=== PATIENT | female | born 1990 | race Hispanic/Latino ===

== ENCOUNTER 2018-09-26 12:12 | Emergency (ER) | payer OTHER, SELFPAY | END 2018-09-26 13:02 | disposition left against medical advice (07) | LOC: ER 12:12 | DX: Z53.21 Procedure and treatment not carried out due to patient leaving prior to being seen by health care provider (principal) ==

== ENCOUNTER 2022-10-27 22:07 | Emergency (ER) | payer SELFPAY ==
--- OUTSIDE RECORDS SUMMARY | 2022-10-27 22:09 | XMS REPORT | Continuity of Care Document ---
:1990 Author Organization [facility] t Address [address] [place] [address] Care Team Providers Name Role Phone Asked, No Pcp Primary Care Physician Unavailable Kelsey Love Attending Clinician Unavailable MIKE CONLEY Attending Clinician Unavailable Lita Hill NP Attending Clinician Doctor Unassigned, [place] Attending Clinician Unavailable [email or web address]_silva Attending Clinician Unavailable Kelsey Love Admitting Clinician Unavailable KNOW, DOES_NOT Admitting Clinician Unavailable [email or web address]_k Admitting Clinician Unavailable Payers Payer Name Policy Type Policy Number Effective Date Expiration Date Dahiana jovanny [facility] - [id number] 2017 00:00:00 OUT OF STATE Problems This patient has no known problems. Allergies, Adverse Reactions, Alerts Allergy Allergy Status Severity Reaction(s) Onset Inactive Treating Comm ents Source Name Type Date Date Clinician No Known DA Active U [facility] [place] No Known DA Active U [facility] No Known DA Active U 2013-10 [facility] No Known DA Active U 2013-10 [facility] 00 l [facility] NO KNOWN Drug Active [facility] S [facility] Social History Social Habit Start Date Stop Date Quantity Comments Source [facility] Sex Assigned At [birth year] [facility] 00:00:00 00:00:00 Smoking Status Start Date Stop Date Source Tobacco smoking consumption unknown [facility] Medications Ordered Filled Start Stop Current Ordering Indication Dosage Frequency Signature Comments Components Source Medication Medication Date Date Medication? Clinician (SIG) Name Name No known No No known Metho di medications 01-[address] 21:23: s Hosp[facility] 54 l Procedures Procedure Date / Time Performed Performing Clinician [facility] e [id number] 2021-02-04 00:00:00 DEBPR [facility] Encounters Start End Encounter Admission Attending Care Care Encounter Source Date/Time Date/Time Type Type Clinicians Facility Department ID 2021-01-31 Inpatient JUNI Love [facility] [id number] [facility] 10:30:25 Kelsey [facility] 2020-09-23 [id number] 14:00:00 Kelsey 40 [facility] 2021-01-21 2021-01-21 Emergency [facility], [facility] [id number] [place] 00:00:00 00:00:00 MIKE [address] 2020-06-12 2020-06-12 [facility] [id number] 13:43:00 15:39:00 Lita Ansari [id number] [place] [id number] [place] [id number] 2020-06-12 2020-06-12 Emergency X [facility] ERT [id number] [facility] 13:34:00 13:34:00 ity of [facility] 2020-06-12 2020-06-12 Orders Doctor CANDIDA [id number] 00:00:00 00:00:00 Only Unassigned, ADDISON [id number] [place] [facility] [id number] 2020-02-05 2020-02-05 Outpatient rudi_silva [facility] [address] [place] 12:22:00 12:22:00 04[facility] Results Test Description Test Time Test Comments Results Result Comments Source HGB HCT 2021-02-05 09:03:00 Test Item Value Reference Range Interpretation Comme nts HEMOGLOBIN (test code = HGB) 9.1 g/dL 10.1-13.8 L HEMATOCRIT (test code = HCT) 28.6 % 32.5-41.8 L COMPREHENSIVE METABOLIC [id number] 06:47:00 Test Item Value Reference Range Interpretation Comments SODIUM (test code = NA) 138 mEq/L 135-145 N POTASSIUM (test code = K) 3.6 mEq/L 3.5-5.0 N CHLORIDE (test code = CL) 103 mEq/L 100-115 N CARBON DIOXIDE (test code = CO2) 25 mEq/L 22-31 N ANION GAP (test code = GAP) 13.50 10-20 N GLUCOSE (test code = GLU) 119 mg/dL 65-110 H BLOOD UREA NITROGEN (test code = 6 mg/dL 7-18 L BUN) GLOMERULAR FILTRATION RATE (test 98 ml/min >60 N code = GFR) CREATININE (test code = CREAT) 0.7 mg/dL 0.5-1.0 N TOTAL PROTEIN (test code = PROT) 6.9 gm/dL 6.3-8.2 N ALBUMIN (test code = ALB) 2.9 gm/dL 3.4-4.8 L CALCIUM (test code = CA) 8.6 mg/dL 8.4-10.2 N BILIRUBIN TOTAL (test code = 0.3 mg/dL 0.2-1.0 N BILT) SGOT/AST (test code = AST) 18 units/L 15-37 N SGPT/ALT (test code = ALT) 15 units/L 12-78 N ALKALINE PHOSPHATASE TOTAL (test 166 units/L 46-116 H code = ALKP) AG HEPATITIS B [id number] 15:49:00 Test Item Value Reference Range Interpretation Comments AG HEPATITIS B SURFACE (test code NONREACTIVE NONREACTIVE = HBSAG) IS CONSENT FORM SIGNED FOR HIV TESTING? YAB HEPATITIS C [id number] 15:49:00 Test Item Value Reference Range Interpretation Comments AB HEPATITIS C (test code = NONREACTIVE NONREACTIVE HCVAB) SIGNAL TO CUTOFF (test code = <0.02 <0.80 N CUTOFF) IS CONSENT FORM SIGNED FOR HIV TESTING? YAB [id number] 15:49:00 Test Item Value Reference Range Interpretation Comments AB TREPONEMA (test code = TREPAB) NONREACTIVE NONREACTIVE IS CONSENT FORM SIGNED FOR HIV TESTING? YAB HIV 1 15:49:00 Test Item Value Reference Range Interpretation Comments AB HIV 1 2 (test NONREACTIVE NONREACTIVE [facility] code = [id number]) 4th Gen HIV Ag/Ab Combo Screen IS CONSENT FORM SIGNED FOR HIV TESTING? YAG HEPATITIS B [id number] 15:48:00 Test Item Value Reference Range Interpretation Comments AG HEPATITIS B SURFACE (test code NONREACTIVE NONREACTIVE = HBSAG) IS CONSENT FORM SIGNED FOR HIV TESTING? YAB HEPATITIS C [id number] 15:48:00 Test Item Value Reference Range Interpretation Comments AB HEPATITIS C (test code = NONREACTIVE NONREACTIVE HCVAB) SIGNAL TO CUTOFF (test code = <0.02 <0.80 N CUTOFF) IS CONSENT FORM SIGNED FOR HIV TESTING? YAB [id number] 15:48:00 Test Item Value Reference Range Interpretation Comments AB TREPONEMA (test code = TREPAB) NONREACTIVE NONREACTIVE IS CONSENT FORM SIGNED FOR HIV TESTING? YAB HIV 1 15:48:00 Test Item Value Reference Range Interpretation Comments AB HIV 1 2 (test code = [id number]) NONREACTIVE IS CONSENT FORM SIGNED FOR HIV TESTING? YAG HEPATITIS B [id number] 15:37:00 Test Item Value Reference Range Interpretation Comments AG HEPATITIS B SURFACE (test code NONREACTIVE NONREACTIVE = HBSAG) IS CONSENT FORM SIGNED FOR HIV TESTING? YAB HEPATITIS C [id number] 15:37:00 Test Item Value Reference Range Interpretation Comments AB HEPATITIS C (test code = HCVAB) NONREACTIVE SIGNAL TO CUTOFF (test code = CUTOFF) <0.80 IS CONSENT FORM SIGNED FOR HIV TESTING? YAB [id number] 15:37:00 Test Item Value Reference Range Interpretation Comments AB TREPONEMA (test code = TREPAB) NONREACTIVE NONREACTIVE IS CONSENT FORM SIGNED FOR HIV TESTING? YAB HIV 1 15:37:00 Test Item Value Reference Range Interpretation Comments AB HIV 1 2 (test code = [id number]) NONREACTIVE IS CONSENT FORM SIGNED FOR HIV TESTING? YCOVID 19 Asymptomatic IH [id number] 15:05:00 Test Item Value Reference Range Interpretation Comments COVID 19 NEGATIVE NEGATIVE This test has b een Asymptomatic IH AG authorize d only for the (test code = detection ofpro teins from COVNONPUIAG) SARS-CoV-2, not for any other viruses orpathogens. Ne gative results should be treated as presumptive andconfirmed wi th a molecular assay , if necessary for patientmanageme nt. Negative result s do not rule out COVID- 19 andshould not b e used as the sole basis for treatment orpat ient management deci sions, including infec tion controldecision s. Negative result s should be considered i n thecontext of a patient's recent exposure s, history and thepresence of clinical signs and symptoms consis tent withCOVID-19. T his test has not been FD A cleared or approved; th e test hasbeen authori zed by FDA under an Emerge ncy Use Authorization(E UA) for use by laborato mally certified under the CLIA thatmeet the re quirements to perform mode rate, high or waivedcomple xity tests. This connie t is authorized for use at thePoint of Car e (POC), i.e., in patien t care settingsoperati ng under a CLIA Certificat e of Waiver, Certifi dominic ofCompliance, o r Certificate of Accreditation. This test is only authori zed for the duration of thedeclaration that circumstances e xist justifying theauthorizatio n of emergency use o f in vitro diagnostic test sfor detection and/o r diagnosis of CO VID-19 under Cenpzpw66 4(b)(1) of the Act, 21 U.S .C. 360bbb-3(b)(1), unless theauthorizatio n is terminated or r evoked sooner. URINALYSIS W/O [id number] 12:35:00 Test Item Value Reference Range Interpretation Comments UA GLUCOSE DIPSTICK (test code = NEGATIVE NEGATIVE DGLUU) UA KETONE DIPSTICK (test code = NEGATIVE NEGATIVE KETU) UA PROTEIN DIPSTICK (test code = NEGATIVE NEGATIVE PROU) IS NURSE PERFORMING TEST? NCBC W/AUTO [id number] 12:31:00 Test Item Value Reference Range Interpretation Comments WHITE BLOOD CELL (test code = WBC) 10.9 K/mm3 6.5-12.3 N RED BLOOD CELL (test code = RBC) 4.28 M/mm3 3.51-4.69 N HEMOGLOBIN (test code = HGB) 12.2 g/dL 10.1-13.8 N HEMATOCRIT (test code = HCT) 36.5 % 32.5-41.8 N MEAN CELL VOLUME (test code = MCV) 85.3 fL 84.6-96.6 N MEAN CELL HGB (test code = MCH) 28.5 pg 27.3-33.9 N MEAN CELL HGB CONCETRATION (test 33.4 gm/dL 32.0-34.2 N code = MCHC) RED CELL DISTRIBUTION WIDTH (test 12.8 % 12.2-16.3 N code = RDW) PLATELET COUNT (test code = PLT) 276 K/mm3 134-363 N MEAN PLATELET VOLUME (test code = 11.1 fL 9.2-12.7 N MPV) NEUTROPHIL % (test code = NT%) 68.0 % 57.9-77.3 N LYMPHOCYTE % (test code = LY%) 22.4 % 14.5-29.7 N MONOCYTE % (test code = MO%) 5.5 % 3.6-10.2 N EOSINOPHIL % (test code = EO%) 1.3 % 0.0-3.0 N BASOPHIL % (test code = BA%) 0.6 % 0.1-0.9 N NEUTROPHIL # (test code = NT#) 7.4 K/mm3 LYMPHOCYTE # (test code = LY#) 2.4 K/mm3 MONOCYTE # (test code = MO#) 0.6 K/mm3 EOSINOPHIL # (test code = EO#) 0.14 K/mm3 BASOPHIL # (test code = BA#) 0.1 K/mm3 RBC MORPHOLOGY REQUIRED (test code NORMAL NORMAL = RBCM) PLATELET MORPHOLOGY REQUIRED (test NORMAL NORMAL code = PLTMR) - RETRO [id number] 16:09:00 [facility] : 1990 Sex: F Patient Name: CAIN TIJERINA Unit No: [id number] EXAMS: CPT CODE: [id number] RETRO LTD 54722 PROCEDURE: RENAL ULTRASOUND INDICATION: Recurrent kidney infection COMPARISON: None. TECHNIQUE: Sonographic evaluation of the kidneys and urinary bladder was performed. FINDINGS: KIDNEYS: The right kidney measures 13.3 cm in length. Normal contour and parenchymal echogenicity. There is no mass lesion or perinephric collection. Moderate hydronephrosis is noted. 5 mm mid and lower pole stones. The left kidney measures 13.6 cm in length. Normal contour and parenchymal echogenicity. There is no hydronephrosis, mass lesion or perinephric collection. 5 mm calculi are seen in the superior and inferiorpole. There is a 6 mm upper pole cyst. BLADDER: Normal anechoic urine. 9 x 6 mm right ureterovesicaljunction stone. Bilateral distal ureteral jets are noted. There is a prevoid bladder volume of 548 mL with 22 mL residual VASCULATURE: The visualized aorta, common iliac arteries and IVC are unremarkable. IMPRESSION: 1. 9 x 6 mm right ureterovesical junction stone with moderate hydronephrosis with preservation of distal ureteral jet. 2. Small bilateral nonobstructing kidney stones with an incidental cortical cyst left kidney. SL: [id number] at 1609 Reported and signed by: Prasanth Thornton MD CC: Kelsey Love MD Technologist: Kalie Beebe RDMS, RVT Probe: Trnscrbd D/ (1609) t.SDR.ETG Orig Print D/T: S: 09/23/2020 (1612) [facility] NAME: CAIN TIJERINA Radiology Department PHYS: Kelsey Villegas MD [address] : 1990 AGE: 30 SEX: F [place] [address] LOC:F.RAD PHONE #: [phone] EXAM DATE: 09/23/2020 STATUS: REG CLI FAX #: [phone] RAD NO: Page 1 Signed Report Patient Name: CAIN TIJERINA Unit No: [id number] EXAMS: CPT CODE: [id number] RETRO LTD 47210 (Continued) [facility] NAME: CAIN TIJERINA Radiology Department PHYS: Kelsey Villegas MD [address] : 1990 AGE: 30 SEX: F [place] [address] LOC: F.RAD PHONE #: [phone] EXAM DATE: 09/23/2020 STATUS: REG CLI FAX #:[phone] RAD NO: Page 2 Signed Report
[2022-10-27] MEDS ORDERED: NA CHLORIDE 0.9% 1,000 ML ONE (23:02)
[2022-10-27] MEDS ORDERED: MORPHINE 2 MG/ML SYR ONE (23:02)
[2022-10-27 23:24] LABS: Absolute Lymphocytes (CBC) 2.1 K/uL (0.7-4.9); Hematocrit 42.9 % (36.0-45.0); Lymphocytes % 11.2 % (15.3-44.8); MCV 89.3 fL (80-100); MPV 8.9 fL (7.6-11.3)
[2022-10-27 23:37] LABS: Protime INR 0.93
[2022-10-27 23:55] LABS: Potassium 3.7 mmol/L (3.5-5.1)
[2022-10-28] MEDS ORDERED: KETOROLAC 30 MG/ML INJ ONE (00:48)
--- NOTE | 2022-10-28 01:06 | ER ---
Nurse's Notes [facility] Name: Jamaica Duran Age: 32 yrs Sex: Female : 1990 Arrival Date: 10/27/2022 Time: 22:07 Bed 6 Private MD: Diagnosis: Incomplete spontaneous without complication Presentation: 10/27 22:40 Chief complaint: Spouse and/or significant other states: "She had an appointment today vc1 that confirmed she is having a miscarriage. Now she's having contractions and bleeding every time.". Coronavirus screen: Vaccine status: Patient reports being unvaccinated. At this time, the client does not indicate any symptoms associated with coronavirus-19. Ebola Screen: No symptoms or risks identified at this time. Risk Assessment: Do you want to hurt yourself or someone else? Patient reports no desire to harm self or others. Onset of symptoms was October 27, 2022. 22:40 Method Of Arrival: Wheelchair vc1 22:40 Acuity: TIM 3 vc1 22:45 Note 12 wks, OB Dr. Ballesterosanez [facility] in [place]. vc1 22:48 Initial Sepsis Screen: Does the patient meet any 2 criteria? No. Patient's initial vc1 sepsis screen is negative. Does the patient have a suspected source of infection? No. Patient's initial sepsis screen is negative. Triage Assessment: 22:44 General: Appears uncomfortable, ill, Behavior is crying. Pain: Complains of pain in vc1 right lower quadrant and left lower quadrant Pain radiates to groin, right femoral area, left femoral area and suprapubic area Pain currently is 10 out of 10 on a pain scale. EENT: No deficits noted. No signs and/or symptoms were reported regarding the EENT system. Neuro: No deficits noted. Neuro: Reports dizziness. Cardiovascular: No deficits noted. Respiratory: Airway is patent Respiratory effort is even, unlabored, Respiratory pattern is regular, symmetrical. GI: No deficits noted. No signs and/or symptoms were reported involving the gastrointestinal system. : Reports vaginal bleeding that is bright red, with clots, heavy flow. Derm: No deficits noted. Musculoskeletal: No deficits noted. 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 - Social history:: Smoking status: Patient denies any tobacco usage or history of. Screenin:28 [facility] ED Fall Risk Assessment (Adult) Score/Fall Risk Level 0 - 2 = Low Risk. Abuse as6 screen: Denies threats or abuse. Denies injuries from another. Nutritional screening: No deficits noted. Tuberculosis screening: No symptoms or risk factors identified. Assessment: 22:15 Reassessment: Called patient to triage, in bathroom. vc1 23:00 General: Appears uncomfortable, Behavior is cooperative, anxious, crying, restless. as6 Pain: Complains of pain in pelvis and suprapubic area and left lower quadrant and right lower quadrant. Neuro: Level of Consciousness is awake, alert, obeys commands, Oriented to person, place, time, situation. Cardiovascular: Capillary refill < 3 seconds Patient's skin is warm and dry. Respiratory: Respiratory effort is even, unlabored, Respiratory pattern is regular, symmetrical. GI: Reports lower abdominal pain. : Reports pain in bilateral in suprapubic area lower quadrant(s) vaginal bleeding that is with clots, heavy flow. 23:30 General: at this time pt is refusing pain medication and voices concerns about possible as6 blood transfusion . Vital Signs: 22:40 Weight 55.79 kg; Height 5 ft. 2 in. (157.48 cm); Pain 10/10; vc1 22:46 BP 136 / 96; Pulse 121; Resp 17; Temp 98.2; Pulse Ox 99% ; vc1 23:30 BP 127 / 79; Pulse 97; Resp 20 S; Pulse Ox 100% on R/A; as6 10/28 00:30 BP 126 / 70; Pulse 101; Resp 18 S; Pulse Ox 99% on R/A; as6 01:27 BP 118 / 94; Pulse 94; Resp 20 S; Pulse Ox 99% on R/A; as6 10/27 22:40 Body Mass Index 22.50 (55.79 kg, 157.48 cm) vc1 ED Course: 10/27 22:07 Patient arrived in ED. ja2 22:43 Triage completed. vc1 22:44 Kyler Palacios PA is PHCP. cp 22:44 Sivakumar Solis MD is Attending Physician. cp 22:44 Arm band placed on right wrist. vc1 22:49 Angel Vincent, LETTY is Primary Nurse. as6 23:00 Inserted saline lock: 20 gauge in right antecubital area, using aseptic technique. as6 23:11 Lab(s) recollected, by me, sent to lab. Inserted saline lock: 20 gauge in left wm antecubital area, using aseptic technique. Blood collected. 23:22 Ptt, Activated Sent. wm 23:22 PT-INR Sent. wm 23:23 Type And Screen Sent. wm 23:23 Abo/rh Typing Sent. wm 23:23 Basic Metabolic Panel Sent. wm 23:23 CBC with Diff Sent. wm 23:23 Quantitative Hcg Sent. wm 23:28 Placed in gown. Bed in low position. Call light in reach. Side rails up X2. Adult w/ as6 patient. 23:45 US OB Limited In Process Unspecified. EDMS 10/28 00:30 Assist provider with pelvic exam: Set up pelvic tray. Performed by Kyler QUAN as6 Patient tolerated well. 00:30 IV discontinued, intact, bleeding controlled, No redness/swelling at site. Pressure as6 dressing applied. Administered Medications: 10/27 23:13 Drug: NS 0.9% 1000 ml Route: IV; Rate: 1 bolus; Site: left antecubital; as6 10/28 01:25 Follow up: Response: No adverse reaction; IV Status: Completed infusion; IV Intake: as6 1000ml 00:55 Not Given (Patient Refused): morphine 2 mg IVP once over 4 mins as6 00:55 Not Given (Patient Refused): morphine 2 mg IVP once over 4 mins as6 00:55 Drug: Ketorolac 15 mg Route: IVP; Site: right antecubital; as6 01:25 Follow up: Response: No adverse reaction as6 01:07 Drug: Tylenol 650 mg Route: PO; as6 01:25 Follow up: Response: No adverse reaction as6 Medication: 10/27 23:30 VIS not applicable for this client. as6 Intake: 10/28 01:25 IV: 1000ml; Total: 1000ml. as6 Outcome: 01:05 Discharge ordered by . cp 01:26 Discharged to home ambulatory, with significant other. as6 01:26 Condition: stable 01:26 Discharge instructions given to patient, Instructed on discharge instructions, follow up and referral plans. medication usage, Demonstrated understanding of instructions, follow-up care, medications, Prescriptions given X 2. 01:27 Patient left the ED. as6 Signatures: Dispatcher [employer] EDMS Kyler Palacios PA PA cp Marsh, Wendy wm Alexander, Jessica ja2 Slawson, Ashby, RN RN as6 Gina Galindo RN RN vc1
--- NOTE | 2022-10-28 01:06 | EDPHYS ---
Physician Documentation [facility] Name: Jamaica Duran Age: 32 yrs Sex: Female : 1990 Arrival Date: 10/27/2022 Time: 22:07 Bed 6 Private MD: ED Physician Sivakumar Solis HPI: 10/27 22:58 This 32 yrs old Female presents to ER via Wheelchair with complaints of cp Vaginal Bleeding, + Preg <12wks, Abdominal Cramping. 23:00 The estimated gestational age is 12 weeks. cp 23:00 The patient presents to the emergency department with abdominal pain, of the right cp lower quadrant and left lower quadrant, described as constant, vaginal bleeding, with clots. 23:00 course: care: private OB physician, Dr. Ferrer in [place], the cp patient's last check was October 27, 2022. Previous pregnancies: in previous pregnancies patient has had . Associated signs and symptoms: Pertinent positives: abdominal pain, vaginal bleeding, Pertinent negatives: fever. 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 - Social history:: Smoking status: Patient denies any tobacco usage or history of. ROS: 23:05 Constitutional: Negative for body aches, chills, fever, poor PO intake. cp 23:05 Eyes: Negative for injury, pain, redness, and discharge. cp 23:05 ENT: Negative for drainage from ear(s), ear pain, sore throat, difficulty swallowing, difficulty handling secretions. 23:05 Cardiovascular: Negative for chest pain, edema, palpitations. 23:05 Respiratory: Negative for cough, shortness of breath, wheezing. 23:05 Abdomen/GI: Positive for abdominal pain, nausea. 23:05 : Positive for vaginal bleeding. 23:05 Neuro: Negative for altered mental status, dizziness, headache, syncope, weakness. 23:05 All other systems are negative. Exam: 23:10 Constitutional: The patient appears in no acute distress, alert, awake, cp non-diaphoretic, non-toxic, well developed, well nourished, in obvious pain, uncomfortable. 23:10 Head/Face: Normocephalic, atraumatic. cp 23:10 Eyes: Periorbital structures: appear normal, Conjunctiva: normal, no exudate, no injection, Sclera: no appreciated abnormality, Lids and lashes: appear normal, bilaterally. 23:10 ENT: External ear(s): are unremarkable, Nose: is normal, Mouth: Lips: moist, Oral mucosa: moist, Posterior pharynx: Airway: no evidence of obstruction, patent. 23:10 Chest/axilla: Inspection: normal. 23:10 Cardiovascular: Rate: tachycardic, Rhythm: regular. 23:10 Respiratory: the patient does not display signs of respiratory distress, Respirations: normal, no use of accessory muscles, no retractions, labored breathing, is not present, Breath sounds: are clear throughout, no decreased breath sounds, no stridor, no wheezing. 23:10 Abdomen/GI: Inspection: abdomen appears normal, Bowel sounds: active, all quadrants, Palpation: soft, in all quadrants, moderate abdominal tenderness, in the right lower quadrant and left lower quadrant, rebound tenderness, is not appreciated, involuntary guarding, is not appreciated. 23:10 Back: pain, is absent, ROM is normal. 23:10 Neuro: Orientation: to person, place \T\ time. Mentation: is normal, Motor: moves all fours, strength is normal, Sensation: is normal. 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 Vital Signs: 10/27 22:40 Weight 55.79 kg; Height 5 ft. 2 in. (157.48 cm); Pain 07/27; vc1 22:46 BP 136 / 96; Pulse 121; Resp 17; Temp 98.2; Pulse Ox 99% ; vc1 23:30 BP 127 / 79; Pulse 97; Resp 20 S; Pulse Ox 100% on R/A; as6 10/28 00:30 BP 126 / 70; Pulse 101; Resp 18 S; Pulse Ox 99% on R/A; as6 01:27 BP 118 / 94; Pulse 94; Resp 20 S; Pulse Ox 99% on R/A; as6 10/27 22:40 Body Mass Index 22.50 (55.79 kg, 157.48 cm) vc1 MDM: 10/27 22:44 Patient medically screened. cp 10/28 01:05 Data reviewed: vital signs, nurses notes, lab test result(s), radiologic studies, cp ultrasound. 01:05 Management of patient was discussed with the following: ED physician. I considered the cp following discharge prescriptions or medication management in the emergency department Medications were administered in the Emergency Department. See MAR. Counseling: I had a detailed discussion with the patient and/or guardian regarding: the historical points, exam findings, and any diagnostic results supporting the discharge/admit diagnosis, lab results, radiology results, the need for outpatient follow up, an OB/Gyne specialist, to return to the emergency department if symptoms worsen or persist or if there are any questions or concerns that arise at home. Response to treatment: the patient's symptoms have mildly improved after treatment, VSS, Discussed results of labs and US showing gestational sac remains in uterus. Patient instructed to continue to monitor bleeding and f/u with primary OB. 10/27 22:58 Order name: Abo/rh Typing; Complete Time: 00:21 cp 10/27 22:58 Order name: Basic Metabolic Panel; Complete Time: 00:21 cp 10/28 00:21 Interpretation: Normal except: GLUC 133. 10/27 22:58 Order name: CBC with Diff; Complete Time: 23:31 cp 10/27 23:32 Interpretation: Normal except: WBC 19.00; SID% 82.9; LYM% 11.2; NEUT A 15.8. 10/27 22:58 Order name: Quantitative Hcg; Complete Time: 00:21 cp 10/28 00:21 Interpretation: Abnormal: HCGQ 2646. cp 10/27 22:59 Order name: PT-INR; Complete Time: 00:21 cp 10/28 00:21 Interpretation: Reviewed. 10/27 21:58 Order name: IV Saline Lock; Complete Time: 23:13 cp 10/27 22:59 Order name: Ptt, Activated; Complete Time: 00:21 cp 10/27 23:00 Order name: US OB Limited 10/27 21:58 Order name: Labs collected and sent; Complete Time: 23:13 cp 10/27 22:58 Order name: NPO; Complete Time: 22:58 cp 10/27 23:34 Order name: Pelvic Exam Setup; Complete Time: 00:13 cp Administered Medications: 10/27 23:13 Drug: NS 0.9% 1000 ml Route: IV; Rate: 1 bolus; Site: left antecubital; as6 10/28 01:25 Follow up: Response: No adverse reaction; IV Status: Completed infusion; IV Intake: as6 1000ml 00:55 Not Given (Patient Refused): morphine 2 mg IVP once over 4 mins as6 00:55 Not Given (Patient Refused): morphine 2 mg IVP once over 4 mins as6 00:55 Drug: Ketorolac 15 mg Route: IVP; Site: right antecubital; 01:25 Follow up: Response: No adverse reaction as6 01:07 Drug: Tylenol 650 mg Route: PO; 01:25 Follow up: Response: No adverse reaction as Disposition: 05:47 Co-signature as Attending Physician, Sivakumar Solis MD I reviewed the patient's care rt provided by the Advanced Practice Provider and agree with the diagnosis and treatment plan. Disposition Summary: 10/28/22 01:05 Discharge Ordered Location: Home cp Problem: new cp Symptoms: have improved cp Condition: Stable cp Diagnosis - Incomplete spontaneous without complication cp Followup: cp - With: Private Physician - When: 2 - 3 days - Reason: Recheck today's complaints Discharge Instructions: - Discharge Summary Sheet cp - Incomplete Miscarriage cp - Recurrent Loss cp - Managing Loss cp Forms: - Medication Reconciliation Form cp - Thank You Letter cp - Antibiotic Education cp - Prescription Opioid Use cp Prescriptions: - Ibuprofen 600 mg Oral Tablet - take 1 tablet by ORAL route every 8 hours As needed take with food; 30 tablet; cp Refills: 0, Product Selection Permitted - Tylenol-Codeine #3 300 mg-30 mg Oral - take 2 tablet by ORAL route every 8 hours As needed; 14 tablet; Refills: 0, cp Product Selection Permitted Signatures: Dispatcher [employer] EDMS Kyler Palacios PA PA cp Slawson, Ashby, RN RN as6 Gina Galindo RN RN vc1 Sivakumar Solis MD MD rt Corrections: (The following items were deleted from the chart) 22:31 22:27 The patient presents to the emergency department with abdominal pain, of the cp right lower quadrant and left lower quadrant, described as constant, vaginal bleeding, with clots, cp The estimated gestational age is 15 weeks, cp cp
[2022-10-28] MEDS ORDERED: ACETAMINOPHEN 325 MG TABLET ONE (01:07)
[2022-10-28 02:18] VITALS: TEMP 98.2
[2022-10-28 02:31] VITALS: BP 126/70; O2SAT 99
--- NOTE | 2022-10-28 20:44 | RAD REPORT ---
EXAM DESCRIPTION: US , Limited CLINICAL HISTORY: The patient is 32 years old and is Female; VAGINAL BLEEDING TECHNIQUE: Real-time limited ultrasound of the maternal uterus with image documentation. COMPARISON: No relevant prior studies available. FINDINGS: FETUS: A gestational sac correlating to approximately 7 weeks 0 days is present. This is located in the region of the lower uterine segment/cervix. There is no pole or yolk sac. UTERUS: The uterus measures 11.0 x 5.3 x 5.8 cm. The endometrium is thickened and heterogeneous measuring up to 1.8 cm. Minimal vascular flow within the endometrium is suggested. ADNEXA: The ovaries are not visualized secondary to bowel gas. IMPRESSION: Findings suggest a failed first trimester and progress with visualized gestati onal sac in the lower uterine segment/cervical region. This correlates to patient's history. Electronically signed by: Stephie Holguin MD 10/28/2022 12:18 AM LINING STUFFER Due to temporary technical issues with the PACS/Fluency reporting system, reports are being signed by the in house radiologists without review as a courtesy to insure prompt reporting. The interpreting radiologist is fully responsible for the content of the report.
== END 2022-10-28 01:27 | disposition home or self-care (01) ==
LOC: ER 22:07
DX: O03.4 Incomplete spontaneous abortion without complication (principal)
CPT/HCPCS: 36415; 76815; 80048; 84702; 85025; 85610; 85730; 86900; 86901; 96361; 96374; 99284; J2270; J7030